=== PATIENT | male | born 1990 | race Caucasian/White ===

== ENCOUNTER 2016-03-24 21:42 | Observation (INO) | payer OTHER ==
[2016-03-24 21:46] VITALS: O2SAT 100
[2016-03-24] MEDS ORDERED: ceFAZolin 2 GM PREMIX 50 ML ONE (21:48)
[2016-03-24] MEDS ORDERED: DIPHTH/TETANUS/ACEL PERTUSSIS (BOOSTER) 0.5 ML VIAL/PFS IM ONE (21:54)
[2016-03-24] MEDS ORDERED: IOHEXOL 350 MG/ML 10 ML VIAL (for RAD DIAG) IV ONE (22:04)
[2016-03-24 22:14] LABS: AUTOMATED NEUTROPHIL # 6.7 TH/MM3 (1.8-7.7); BASOPHIL # 0.1 TH/MM3 (0-0.2); BASOPHIL % 0.4 % (0.0-2.0); EOSINOPHIL # 0.1 TH/MM3 (0-0.4); EOSINOPHIL % 0.6 % (0.0-4.0); HEMATOCRIT 41.4 % (39.0-51.0); HEMO FLAGS DIFF FINAL; LYMPH % 35.5 % (9.0-44.0); LYMPHOCYTE # 4.4 TH/MM3 (1.0-4.8); MEAN CELL VOLUME 91.8 FL (80.0-100.0); MEAN CORPUSCULAR HEMOGLOBIN 31.9 PG (27.0-34.0); MEAN CORPUSCULAR HGB CONC 34.7 % (32.0-36.0); MONO % 9.5 % (0.0-8.0); PLATELET COUNT 236 TH/MM3 (150-450); RED BLOOD COUNT 4.51 MIL/MM3 (4.50-5.90); WHITE BLOOD COUNT 12.5 TH/MM3 (4.0-11.0)
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
[2016-03-24 22:25] LABS: APTT (PATIENT) 24.7 SEC (24.3-30.1); PROTHROMBIN TIME - PATIENT 11.3 SEC (9.8-11.6)
[2016-03-24] MEDS ORDERED: SODIUM CHLOR 0.9% 1000 ML INJ 1,000 ML IV ONE (22:30)
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
[2016-03-24] MEDS ORDERED: ENALAPRILAT 1.25 MG/ML VIAL IV PRN (22:45)
[2016-03-24] MEDS ORDERED: MISCELLANEOUS NURSING INFORMATION XX SCH (22:45)
[2016-03-24] MEDS ORDERED: ACETAMINOPHEN/HYDROcodone 325 MG/5 MG TAB PO PRN ×2 (22:45)
[2016-03-24] MEDS ORDERED: CHLORHEXIDINE GLUCONATE 2 % 1 PACK (2 CLOTHS) TOP PRN (22:45)
[2016-03-24] MEDS ORDERED: ONDANSETRON HCL 4 MG/2 ML VIAL IV PRN (22:45)
[2016-03-24] MEDS ORDERED: MAGNESIUM HYDROXIDE SUSP 30 ML CUP PO PRN (22:45)
[2016-03-24] MEDS ORDERED: SODIUM CHLORIDE 0.9% FLUSH 5 ML FLUSH IVF PRN (22:45)
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
[2016-03-25] MEDS ORDERED: MULTIVITAMIN INJ 10 ML, THIAMINE INJ 100 MG, FOLIC ACID INJ 1 MG in SODIUM CHLORID 0.9%... IV SCH (00:45)
[2016-03-25] MEDS: SODIUM CHLOR 0.9% 1000 ML INJ 1,000 ML IV SCH ×2 (01:06→08:39)
[2016-03-25 01:07] VITALS: RESP 18; O2SAT 98
[2016-03-25 01:14] VITALS: BP 113/66; PULSE 80; RESP 20; TEMP 98.4; O2SAT 96
[2016-03-25] MEDS: HYDROmorphone HCL PF 1 MG/ML VIAL IVP PRN ×3 (01:39→12:21)
[2016-03-25] MEDS ORDERED: CHLORHEXIDINE GLUCONATE 2 % 1 PACK (2 CLOTHS) TOP SCH (04:00)
[2016-03-25 04:17] VITALS: BP 110/65; PULSE 78; RESP 19; TEMP 98.2; O2SAT 96
[2016-03-25 05:54] LABS: AUTOMATED NEUTROPHIL # 9.3 TH/MM3 (1.8-7.7); BASOPHIL % 0.2 % (0.0-2.0); EOSINOPHIL % 0.3 % (0.0-4.0); HEMATOCRIT 36.6 % (39.0-51.0); HEMO FLAGS DIFF FINAL; LYMPH % 19.5 % (9.0-44.0); LYMPHOCYTE # 2.5 TH/MM3 (1.0-4.8); MEAN CELL VOLUME 92.4 FL (80.0-100.0); MEAN CORPUSCULAR HEMOGLOBIN 31.2 PG (27.0-34.0); MEAN CORPUSCULAR HGB CONC 33.8 % (32.0-36.0); PLATELET COUNT 201 TH/MM3 (150-450); RED BLOOD COUNT 3.96 MIL/MM3 (4.50-5.90); RED CELL DISTRIBUTION WIDTH 13.9 % (11.6-17.2)
[2016-03-25] MEDS ORDERED: PANTOPRAZOLE SODIUM 40 MG VIAL IVP SCH (06:00)
[2016-03-25 06:25] LABS: ANION GAP 12 MEQ/L (5-15); AST (GOT) 25 U/L (15-37); BICARBONATE 20.5 MEQ/L (21.0-32.0); BLOOD UREA NITROGEN 8 MG/DL (7-18); CHLORIDE 109 MEQ/L (98-107); GLOMERULAR FILTRATION RATE 72 ML/MIN (>89); POTASSIUM 3.8 MEQ/L (3.5-5.1); SODIUM (NA) 141 MEQ/L (136-145)
[2016-03-25 06:29] LABS: ALKALINE PHOSPHATASE 44 U/L (45-117); ALT (GPT) 29 U/L (12-78); TOTAL BILIRUBIN ADULT 0.8 MG/DL (0.2-1.0)
[2016-03-25] MEDS: ceFAZolin 2 GM PREMIX 50 ML IV SCH ×2 (06:43→15:57)
[2016-03-25 07:34] VITALS: BP 129/77; PULSE 72; RESP 19; TEMP 98.3; O2SAT 94
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
[2016-03-25] MEDS ORDERED: DOCUSATE SODIUM 50 MG/SENNA 8.6 MG TAB PO SCH (09:00)
[2016-03-25] MEDS ORDERED: BACITRACIN TOP OINT 15 GM TUBE TOP SCH (09:00)
[2016-03-25] MEDS ORDERED: MAGNESIUM HYDROXIDE SUSP 30 ML CUP PO SCH (09:00)
[2016-03-25] MEDS ORDERED: DOCUSATE SODIUM 100 MG CAP PO SCH (09:00)
[2016-03-25 12:04] VITALS: BP 112/64; PULSE 77; RESP 19; TEMP 98.2; O2SAT 94
[2016-03-25] MEDS ORDERED: NORC5TAB PO (12:15)
[2016-03-25 12:51] VITALS: RESP 20
[2016-03-25] MEDS ORDERED: CEPH-460 PO ×2 (15:55→17:10)
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
--- NOTE | 2016-03-27 13:06 | MP ---
cc: DEWAYNE MORALES MD DATE OF SURGERY 03/25/2016 PREOPERATIVE DIAGNOSIS Open wound of dorsum of right hand with tissue loss. POSTOPERATIVE DIAGNOSIS Open wound of dorsum of right hand with tissue loss. PROCEDURE 1. Excisional debridement of skin and subcutaneous tissue of the dorsum of the right hand. 2. Complex closure wound of right hand in length measuring approximately 7.5 cm PROCEDURE The operation was performed in the emergency room. The patient was in the bed in a supine position. His right hand was prepped with Betadine and draped in the usual sterile fashion. Bupivacaine 0.5% plain mixed in equal amounts with lidocaine 1% with epinephrine 1:100,000 was injected as a field block around the wound. Once the anesthetic had taken effect, the wound was debrided of devitalized tissue using excision and curetting and swabbing and irritation until the wound was clean. At this point, it was repaired by using 4-0 Prolene sutures which were used to close the subcutaneous tissue, as well as the skin. Once the wound was completely close, the area was cleansed of Betadine and blood and a dressing was applied using povidone-iodine ointment, Adaptic, 4x4s, Radha and a palmar splint. The patient was then discharged back to the care of the ER staff for disposition. The patient is made aware that he is to keep the arm elevated, keep it clean and dry and begin taking 800 mg of ibuprofen once the pain begins to return. He is also to keep his hand elevated at the level of the shoulder. The ER staff is made aware that the patient can be discharged and should be given a prescription for prophylactic antibiotic for several days as well as a sling. There were also made aware that the appointment will be made by the patient tomorrow for follow up on Saturday. MD JACKIE More/CONRAD /3:47 PM /1:02 PM [facility]
[2016-04-04] MEDS ORDERED: DICL75TA PO (14:15)
== END 2016-03-25 18:04 | disposition home or self-care (01) ==
LOC: NEPI 21:42 → EDBD 23:07 → NEDA 23:07 → NEPHCDU 03-25 00:54
PROVIDERS: ADMIT Surgery; ATTEND Surgery
DX: S61.411A Laceration without foreign body of right hand, initial encounter (principal); S06.0X9A Concussion with loss of consciousness of unspecified duration, initial encounter; S00.01XA Abrasion of scalp, initial encounter; V49.9XXA Car occupant (driver) (passenger) injured in unspecified traffic accident, initial encounter
CPT/HCPCS: 11042; 13132; 70450; 71010; 71260; 72125; 72170; 73120; 74177; 80053; 80320; 80329; 82435; 82565; 82947; 84132; 84295; 84520; 85025; 85610; 85730; 86850; 86900; 86901; 90471; 96374; 99285; 99291; C9113; G0378; J0690; J1170; J2405; J3411; J7030; J7040; Q9967; 90715; G0390; G0480